=== PATIENT | male | born 1975 | race Caucasian/White ===

== ENCOUNTER → 2017-01-29 | Outpatient (CLI) | payer BC ==
[~2017-01-29] MED LIST: ACET-1311 PO; CIPR-255 PO; IBUP-103 PO; MULT-506 PO
== END | disposition home or self-care (01) ==
LOC: C.LAB 12:22
PROVIDERS: ATTEND Internal Medicine Gastroenterology
DX: Z15.09 Genetic susceptibility to other malignant neoplasm (principal)